=== PATIENT | female | born 1955 | race Caucasian/White ===

== ENCOUNTER 2017-07-18 09:05 | Emergency (ER) | payer MEDICARE ==
[~2017-07-18] VITALS: Ht 154.9 cm; Wt 64.4 kg
[~2017-07-18 09:05] MED LIST: ADDE10 PO; ATEN50TA PO; CITA10TA4 PO; FLUTI110I INH; HYDR50TA94 PO; METR-1 PO; VALA1TAB PO
[2017-07-18 09:14] VITALS: BP 170/75; PULSE 56; RESP 16; TEMP 98; O2SAT 98
[2017-07-18] MEDS ORDERED: ADDE15TA PO ×2 (09:35→09:45)
[2017-07-18] MEDS ORDERED: CITA10TA4 PO (09:45)
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
== END 2017-07-18 10:13 | disposition home or self-care (01) ==
LOC: PHED 09:05
DX: F41.8 Other specified anxiety disorders (principal); I10 Essential (primary) hypertension; Z76.0 Encounter for issue of repeat prescription
CPT/HCPCS: 99281

== ENCOUNTER 2017-07-31 10:48 | Emergency (ER) | payer MEDICARE ==
[~2017-07-31] VITALS: Ht 154.9 cm; Wt 63.0 kg
[~2017-07-31 10:48] MED LIST changes: -ADDE10 PO; +ADDE15TA PO; -METR-1 PO
[2017-07-31 10:52] VITALS: BP 162/79; PULSE 58; RESP 17; TEMP 97.7; O2SAT 98
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
[2017-07-31] MEDS ORDERED: IBUP-232 PO (12:03)
== END 2017-07-31 12:10 | disposition home or self-care (01) ==
LOC: PHEFT 10:48
DX: S00.11XA Contusion of right eyelid and periocular area, initial encounter (principal); W22.8XXA Striking against or struck by other objects, initial encounter; Y93.K1 Activity, walking an animal
CPT/HCPCS: 70140; 99283